=== PATIENT | female | born 1980 | race Two or more races ===

== ENCOUNTER 2020-12-03 14:51 | Outpatient (REF) | payer MEDICAID, SELFPAY | END 2020-12-03 14:52 | disposition home or self-care (01) | LOC: HO.LAB 14:51 | PROVIDERS: Visit Provider Internal Medicine | DX: Z20.822 Contact with and (suspected) exposure to COVID-19 (principal) | CPT/HCPCS: C9803; U0003; U0005 ==

== ENCOUNTER 2022-05-23 15:03 | Emergency (ER) | payer MEDICAID, SELFPAY ==
[2022-05-23 15:14] VITALS: BP 148/72; BP 150/82; PULSE 102; PULSE 98; RESP 33; TEMP 36.7; O2SAT 98; BMI 36.1
--- NOTE | 2022-05-23 15:31 | ECG_ITS ---
Test Reason : PALPITATIONS Blood Pressure : / mmHG Vent. Rate : 099 BPM Atrial Rate : 099 BPM P-R Int : 162 ms QRS Dur : 084 ms QT Int : 380 ms P-R-T Axes : 023 016 006 degrees QTc Int : 487 ms Normal sinus rhythm Prolonged QT Abnormal ECG When compared with ECG of 03-NOV-2010 14:34, No significant change was found Referred By: Ronan Fonseca Electronically Signed By:Roger Samayoa
[2022-05-23 15:55] VITALS: BP 129/65; PULSE 97; RESP 16; TEMP 36.9; O2SAT 98
--- NOTE | 2022-05-23 15:59 | MHC.EDTECH ---
this pct assumed care of pt at 1500 ,pt vitals sign taken pt waiting to see provider .
--- NOTE | 2022-05-23 16:23 | ED_ITS ---
HPI - Arrhythmia/Palpitations General Chief Complaint: Arrhythmia/Palpitations Stated Complaint: Heart palpitations since this AM per EMS Time Seen by Provider: 05/23/22 16:16 Source: patient Mode of arrival: ambulatory Limitations: no limitations History of Present Illness HPI narrative: Patient comes to the emergency room complaining of palpitations. Patient states that early this morning, she had some ?fluttering? which self-resolved. Then later on the day, patient went to the dentist office to take her son. When she was in the front desk receptionist, patient started having more intense palpitations. 911 was called and patient was brought to the emergency room. Patient states that she never experienced chest pain. No near syncopal episodes, no dizziness. No shortness of breath. Patient states that several years ago, she had something similar happened to her, she wore a Holter monitor for a day, no findings. At this time, patient is asymptomatic. Related Data Allergies Allergy/AdvReac Type Severity Reaction Status Date / Time lisinopril AdvReac Swelling Verified 05/23/22 15:29 Review of Systems Review of Systems: Constitutional : No Weight loss, No Fever, No Chills, No Night Sweats, No Fatigue, No Malaise ENT/Mouth : No Hearing loss, No Ear Pain, No Nasal Congestion, No Sinus Pain, No Hoarseness, No sore throat, No Rhinorrhea, No Swallowing Difficulty Eyes: No Eye Pain, No Swelling, No Redness, No Foreign Body, No Discharge, No Vision Changes Cardiovascular : No Chest Pain, No SOB, No Dyspnea on Exertion, No Orthopnea, No Edema, complaining of Palpitations Respiratory : No Cough, No Sputum, No Wheezing, No Smoke Exposure, No Dyspnea Gastrointestinal : No Nausea, No Vomiting, No Diarrhea, No Constipation, No abdominal Pain, No Hematochezia, No Melena Genitourinary : no irregular bleeding, No Dysuria, No Urinary Frequency, No Hematuria, No Urinary Incontinence, No Urgency, No Flank Pain, No Urinary Flow Changes, No Hesitancy Musculoskeletal : No joint pain, No Myalgias, No Joint Swelling Skin : No Skin Lesions, No rash Neuro : No Weakness, No Numbness, No Paresthesias, No Loss of Consciousness, No Dizziness, No Headache Psych : No Anxiety/Panic, No Depression, No SI/HI/AH/VH, No Social Issues, Heme/Lymph: No Bruising, No Bleeding,No Lymphadenopathy Endocrine : No Polyuria, No Polydipsia, No Temperature Intolerance [facility] Past Medical History Medical History Anxiety Hypertension Social History Social History Alcohol intake: never Smoked in Last 30 Days: No Use of substances other than those prescribed or required for medical reasons: No Advance Directives: No Advance Directives Information Provided: Yes Patient : No Physical Exam Vital Signs: Vital Signs: Last Vital Signs Temp 98.0 F 05/23/22 18:00 Pulse 99 05/23/22 18:00 Resp 16 05/23/22 18:00 BP 157/86 H 05/23/22 18:00 Pulse Ox 98 05/23/22 18:00 O2 Del Method 05/23/22 15:55 BMI result Body Mass Index 36.1 Const: Other: Appearance: Alert. Oriented X3. No acute distress. Eyes: Pupils equal, round and reactive to light. ENT: Pharynx normal. Neck: Normal inspection. Neck supple. No lymph nodes noted. No crepitus CVS: Normal heart rate and rhythm. Pulses normal. Normal S1 and S2 Respiratory: No respiratory distress. Breath sounds normal. No Wheezing. No rales Abdomen: Soft and nontender. No rigidity. No distention. Skin: Skin warm and dry. Normal skin color. Normal skin turgor. Extremities: No lower extremity edema. No Lacerations. No Rash Neuro: Oriented X 3. No motor deficit. No sensory deficit. Moving all extremities. No slurred speech. CN 2 through 12 grossly intact Psych: calm, cooperative, normal affect Course Course Course Narrative: -initial physical exam normal -EKG and labs pending Medications Administered Discontinued Medications Generic Name Dose Route Start Last Admin Trade Name Freq PRN Reason Stop Dose Admin Potassium Chloride 40 meq 05/23/22 17:17 05/23/22 17:44 Potassium Chloride Packet 20 Meq Packet PO 05/23/22 17:18 40 meq ONCE ONE Administration Medical Decision Making Medical Decision Making [facility] Narrative: -my interpretation of EKG: Normal sinus rhythm, heart rate 99, no ST segment depressions or elevation, nonspecific T-wave inversion in lead 3, QTC 487 -patient's potassium 3.0. Patient known to take chlorthalidone, potassium rep leted p.o. -patient's potassium increased to 3.6 -patient is symptomatic, patient ready to be discharged -discussed with the patient that she may need another Holter monitor evaluation. Differential Diagnosis Differential Diagnoses: The differential diagnosis associated with the presentation includes (SVT, sinus tachycardia, PVCs) Lab Data MDM Lab Attestation statement: I reviewed the patient's lab results. 05/23/22 16:35 05/23/22 16:35 Labs: Lab Results 05/23/22 05/23/22 05/23/22 Range/Units 16:35 16:35 16:35 WBC 6.4 (4.8-10.8) X10*3/uL RBC 4.60 (4.20-5.50) X10*6/uL Hgb 10.7 L (12.0-16.0) g/dl Hct 33.9 L (37.0-47.0) % MCV 73.7 L (80.0-98.0) fL MCH 23.3 L (27.0-33.0) pg MCHC 31.6 (31.0-35.0) g/dl RDW 17.0 H (11.0-16.0) % Plt Count 285 (160-400) X10*3/uL MPV 10.6 (9.4-12.3) fL Immature Gran % (Auto) 0.5 H (0.0-0.4) % Neut % (Auto) 73.4 H (45-73) % Lymph % (Auto) 16.2 L (20-40) % Cache % (Auto) 8.0 (2-11) % Eos % (Auto) 1.3 (0-4) % Baso % (Auto) 0.6 (0-2) % Lymph # (Auto) 1.0 L (1.2-4.9) X10*3/uL Cache # (Auto) 0.5 (0.1-1.2) X10*3/uL Eos # (Auto) 0.1 (0.0-0.4) X10*3/uL Baso # (Auto) 0.0 (0.0-0.2) X10*3/uL Abs Immat Gran (auto) 0.03 (0.00-0.03) X10*3/uL Absolute Neuts (auto) 4.7 (2.0-8.3) x10*3/uL Absolute Nucleated RBC 0.000 (0.0-0.012) X10*3/uL Nucleated RBC % (auto) 0.0 (0.0-0.2) /100WBC Sodium 139 (135-145) mmol/L Potassium 3.0 L (3.3-5.1) mmol/L Chloride 104 (96-108) mmol/L Carbon Dioxide 24 (22-29) mmol/L Anion Gap 14 (12-20) BUN 14 (9-16) mg/dL Creatinine 0.72 (0.5-1.4) mg/dL Estim Creat Clear Calc 96.7 Estimated GFR > 60 Random Glucose 112 (60-115) mg/dL Calcium 9.0 (8.4-10.2) mg/dL Magnesium 2.0 (1.6-2.6) mg/dL Total Bilirubin 0.4 (0.0-1.0) mg/dL Direct Bilirubin < 0.2 (0.0-0.5) mg/dL AST 16 (5-31) U/L ALT 15 (0-31) U/L Alkaline Phosphatase 136 H (39-117) U/L Troponin I High Sens < 3.5 (<3.5-17.0) ng/L Total Protein 7.2 (6.5-8.0) g/dL Albumin 4.0 (3.5-5.0) g/dL TSH 1.03 (0.32-4.0) uIU/mL 05/23/22 Range/Units 18:45 WBC (4.8-10.8) X10*3/uL RBC (4.20-5.50) X10*6/uL Hgb (12.0-16.0) g/dl Hct (37.0-47.0) % MCV (80.0-98.0) fL MCH (27.0-33.0) pg MCHC (31.0-35.0) g/dl RDW (11.0-16.0) % Plt Count (160-400) X10*3/uL MPV (9.4-12.3) fL Immature Gran % (Auto) (0.0-0.4) % Neut % (Auto) (45-73) % Lymph % (Auto) (20-40) % Cache % (Auto) (2-11) % Eos % (Auto) (0-4) % Baso % (Auto) (0-2) % Lymph # (Auto) (1.2-4.9) X10*3/uL Cache # (Auto) (0.1-1.2) X10*3/uL Eos # (Auto) (0.0-0.4) X10*3/uL Baso # (Auto) (0.0-0.2) X10*3/uL Abs Immat Gran (auto) (0.00-0.03) X10*3/uL Absolute Neuts (auto) (2.0-8.3) x10*3/uL Absolute Nucleated RBC (0.0-0.012) X10*3/uL Nucleated RBC % (auto) (0.0-0.2) /100WBC Sodium 141 (135-145) mmol/L Potassium 3.6 (3.3-5.1) mmol/L Chloride 106 (96-108) mmol/L Carbon Dioxide 25 (22-29) mmol/L Anion Gap 14 (12-20) BUN 12 (9-16) mg/dL Creatinine 0.72 (0.5-1.4) mg/dL Estim Creat Clear Calc 96.7 Estimated GFR > 60 Random Glucose 95 (60-115) mg/dL Calcium 9.0 (8.4-10.2) mg/dL Magnesium (1.6-2.6) mg/dL Total Bilirubin (0.0-1.0) mg/dL Direct Bilirubin (0.0-0.5) mg/dL AST (5-31) U/L ALT (0-31) U/L Alkaline Phosphatase (39-117) U/L Troponin I High Sens (<3.5-17.0) ng/L Total Protein (6.5-8.0) g/dL Albumin (3.5-5.0) g/dL TSH (0.32-4.0) uIU/mL Discharge Plan Discharge Clinical Impression: Palpitations Patient Disposition: Home, Self-Care Instructions: Heart Palpitations (DC) Additional Instructions: Please follow-up with your primary care physician tomorrow. Is possible that you may need to be referred for another Holter monitor evaluation. If you have any worsening or new symptoms, please return to the emergency room or call 911
--- NOTE | 2022-05-23 16:39 | MHC.EDTECH ---
pt blood drawn and sent to lab ,pt asked some some water ,provider juan said its pancho for pt to have water .
[2022-05-23 16:40] LABS: MANUAL DIFF FLAG NO
[2022-05-23 16:46] LABS: Basophils Percent Auto 0.6 % (0-2); Eosinophils Absolute Auto 0.1 X10*3/uL (0.0-0.4); Eosinophils Percent Auto 1.3 % (0-4); Hematocrit 33.9 % (37.0-47.0); Hemoglobin 10.7 g/dl (12.0-16.0); Imm Gran Abs Auto 0.03 X10*3/uL (0.00-0.03); Imm Gran Pct Auto 0.5 % (0.0-0.4); Lymphocytes Percent Auto 16.2 % (20-40); Mean Corpuscular HGB Conc 31.6 g/dl (31.0-35.0); Mean Corpuscular Hemoglobin 23.3 pg (27.0-33.0); Mean Corpuscular Volume 73.7 fL (80.0-98.0); Mean Platelet Volume 10.6 fL (9.4-12.3); Monocytes Absolute Auto 0.5 X10*3/uL (0.1-1.2); Neutrophils Absolute Auto 4.7 x10*3/uL (2.0-8.3); Neutrophils Percent Auto 73.4 % (45-73); Platelet Count 285 X10*3/uL (160-400); White Blood Count 6.4 X10*3/uL (4.8-10.8)
--- NOTE | 2022-05-23 16:59 | PC.NURSE ---
PT REPORTED THAT SHE WAS AT THE DENTIST OFFICE WITH HER DAUGHTER AND STARTED HAVING PALPITATIONS. SHE REPORTED THAT SHE HAD THE SAME THING HAPPENED TO HER IN THE PAST. HX OF ANXIETY AND TAKES ATIVAN.
[2022-05-23 17:09] LABS: Alanine Aminotransferase 15 U/L (0-31); Alkaline Phosphatase 136 U/L (39-117); Anion Gap 14 (12-20); Aspartate Amino Transferase 16 U/L (5-31); Bilirubin Direct < 0.2 mg/dL (0.0-0.5); Bilirubin Total 0.4 mg/dL (0.0-1.0); Blood Urea Nitrogen 14 mg/dL (9-16); Carbon Dioxide 24 mmol/L (22-29); Chloride 104 mmol/L (96-108); Creatinine Clr Calc Pharmacy 96.7; Estimated Glomerular Filt Rate > 60; Glucose Random 112 mg/dL (60-115); Sodium 139 mmol/L (135-145); Total Protein 7.2 g/dL (6.5-8.0)
[2022-05-23 17:13] LABS: Troponin-I High Sensitivity < 3.5 ng/L (<3.5-17.0)
[2022-05-23 17:24] LABS: TSH reflex Free T4 1.03 uIU/mL (0.32-4.0)
[2022-05-23] MEDS: Potassium Chloride Packet 20 MEQ PACKET 40 MEQ PO (17:44)
[2022-05-23 18:00] VITALS: BP 157/86; PULSE 99; RESP 16; TEMP 36.7; O2SAT 98
--- NOTE | 2022-05-23 19:00 | PC.NURSE ---
assumed care of pt aox4 resting quietly, while on phone no apparent distress bmp results pending will ctm
[2022-05-23 19:05] LABS: Anion Gap 14 (12-20); Blood Urea Nitrogen 12 mg/dL (9-16); Carbon Dioxide 25 mmol/L (22-29); Chloride 106 mmol/L (96-108); Creatinine Clr Calc Pharmacy 96.7; Estimated Glomerular Filt Rate > 60; Glucose Random 95 mg/dL (60-115); Potassium 3.6 mmol/L (3.3-5.1); Sodium 141 mmol/L (135-145)
--- NOTE | 2022-05-23 19:06 | PC.NURSE ---
bmp results indicating K+ now WNL- 3.6 pt denies pain, states she feels slightly anxious but that is her baseline denies any chest discomfort
--- NOTE | 2022-05-23 19:50 | PC.NURSE ---
Discharge instructions given/explained to patient No apparent distress ambulates safely/independently aox4 IV cath intact upon removal
== END 2022-05-23 19:50 | disposition home or self-care (01) ==
PROVIDERS: Emergency Provider Emergency Medicine
DX: I49.9 Cardiac arrhythmia, unspecified (principal); R00.2 Palpitations; Z79.899 Other long term (current) drug therapy
CPT/HCPCS: 36415; 80048; 80076; 83735; 84443; 84484; 85025; 93005; 99283; 99284

== ENCOUNTER 2022-10-28 12:00 | Outpatient (RCR) | payer MEDICAID, SELFPAY | END 2022-11-13 15:34 | disposition home or self-care (01) | LOC: HO.PT 12:00 | PROVIDERS: PCP Nurse Practitioner Community Health; Visit Provider Nurse Practitioner Community Health | DX: M79.674 Pain in right toe(s) (principal); M54.41 Lumbago with sciatica, right side | CPT/HCPCS: 97110; 97161 ==

== ENCOUNTER 2024-02-29 14:09 | Emergency (ER) | payer MEDICAID, SELFPAY ==
--- NOTE | 2024-02-29 14:12 | ECG_ITS ---
Test Reason : NEAR SYNCOPE Blood Pressure : / mmHG Vent. Rate : 098 BPM Atrial Rate : 098 BPM P-R Int : 150 ms QRS Dur : 082 ms QT Int : 366 ms P-R-T Axes : 024 006 013 degrees QTc Int : 467 ms Normal sinus rhythm Minimal voltage criteria for LVH, may be normal variant ( R in aVL ) Borderline ECG When compared with ECG of 23-MAY-2022 15:30, No significant change was found Referred By: Generic ED Physician Electronically Signed By:Roger Samayoa
[2024-02-29 14:15] VITALS: BP 220/120; PULSE 104; O2SAT 99
[2024-02-29 14:35] VITALS: BP 174/70; PULSE 107; RESP 16; TEMP 36.6; O2SAT 100; BMI 32.7
--- NOTE | 2024-02-29 14:41 | ED.GENADULT ---
HPI - General Adult General Chief complaint: Dyspnea Stated complaint: WEAKNESS,HIGH BP 220/120 PER EMS Time Seen by Provider: 02/29/24 20:16 History of Present Illness ED Provider: Martin MORENO narrative: The patient is a 44-year-old woman who says that she started to feel unwell after having had some food and a caffeinated beverage from [employer]. She says that she rather abruptly felt very lightheaded as if she might pass out and she asked someone to call 911. She says that she also felt a sense of tingling in her hands. An ambulance arrived and brought her to the hospital. Not long after arriving at the hospital her symptoms resolved. She has had a long wait to be seen and has had no recurrence of her symptoms. No pain or swelling in her legs. She is a nonsmoker. She is not on any hormonal medications. She is on amlodipine. No history of blood clots. Related Data Previous Rx's ?Medication ?Instructions ?Recorded potassium chloride 10 mEq 20 meq (2 x 10 mEq) PO DAILY 2 02/29/24 capsule,extended release weeks #28 caps Allergies Allergy/AdvReac Type Severity Reaction Status Date / Time lisinopril AdvReac Swelling Verified 02/29/24 14:36 Review of Systems Review of Systems: Yes all other systems are reviewed and are negative [facility] Past Medical History Medical History Anxiety Hypertension Social History Social History Alcohol intake: never Advance Directives: No Advance Directives Information Provided: No Do you have a plan to hurt others: No Plan Physical Exam ED Vital Signs: Vital Signs - 24 hr 02/29/24 14:35 02/29/24 19:54 02/29/24 20:49 Temperature 97.8 F 99.0 F 99.0 F Pulse Rate 107 H 106 H 106 H Respiratory Rate 16 16 16 Blood Pressure 174/70 H 164/79 H 164/79 H Pulse Oximetry 100 97 97 Oxygen Delivery Method Room Air Room Air Room Air BMI result Body Mass Index 32.7 Const Other: At the time that I interviewed the patient she was asymptomatic. She was awake, alert, pleasant, cooperative. She did not appear ill or in any distress. She looked entirely well and asymptomatic. [facility] Head: Yes normal to inspection Face and sinus: Yes normal facial exam Mouth: Normal oral and palatal mucosa present and moist mucous membranes Eyes General: appearance normal, both eyes and all related structures Neck Neck: Yes full ROM, Yes no lymphadenopathy and Yes no JVD Resp Effort & Inspection: normal respiratory effort Auscultation: clear to auscultation bilaterally Cardio Rate: regular rate Rhythm: regular rhythm Heart sounds: S1 normal heart sound present and S2 normal heart sound present Skin Other: skin is dry and unremarkable Neuro Other: the patient is awake and alert with normal mental status. Cranial nerves grossly intact. She moves her extremities normally. She has a normal gait. Extrem Other: No calf swelling or tenderness, no asymmetry, no edema. Course Course Course Narrative: RME: 44-year-old female presents to ED for resolved episode of tingling in the hands, feeling anxious, dizzy, slight chest discomfort while at [employer]hands. Patient states symptoms occurred after drinking some coffee from [employer]. Patient is very sensitive and downs and drink caffeine but she would coughing. Patient is presently asymptomatic has no complaints EKG labs ordered Medications Administered Discontinued Medications Generic Name Dose Route Start Last Admin Trade Name Bullq PRN Reason Stop Dose Admin Potassium Chloride 40 meq 02/29/24 20:27 02/29/24 20:37 Potassium Chloride Er 20 Meq Tab.Er.Prt PO 02/29/24 20:28 40 meq ONCE ONE Administration Medical Decision Making Medical Decision Making [facility] Narrative: The patient presents having arrived by ambulance after having an episode of fairly abrupt onset lightheadedness and a sense of her heart racing. she felt near syncopal but did not pass out. She also describes having a sense of numbness in her hands. Her symptoms resolved not long after arrival to the hospital and she was in the waiting room for a long time completely asymptomatic. EKG showed normal sinus rhythm and no change from previous. Basic labs are unremarkable. The patient does not have any risk factors for venous thromboembolism. Given the rapid resolution of her symptoms my suspicion for a pulmonary embolism in this case would be low. I think she may be discharged with instructions to return if worse. Her potassium was mildly low and she was prescribed some supplemental potassium. She should follow up with her PCP. Return if worse. Lab Data 02/29/24 16:48 02/29/24 16:48 Labs: Lab Results 02/29/24 Range/Units 16:48 WBC 6.9 (4.8-10.8) X10*3/uL RBC 4.71 (4.20-5.50) X10*6/uL Hgb 12.3 (12.0-16.0) g/dl Hct 36.8 L (37.0-47.0) % MCV 78.1 L (80.0-98.0) fL MCH 26.1 L (27.0-33.0) pg MCHC 33.4 (31.0-35.0) g/dl RDW 13.9 (11.0-16.0) % Plt Count 335 (160-400) X10*3/uL MPV 9.8 (9.4-12.3) fL Immature Gran % (Auto) 0.3 (0.0-0.4) % Neut % (Auto) 73.5 H (45-73) % Lymph % (Auto) 18.0 L (20-40) % Parker % (Auto) 6.8 (2-11) % Eos % (Auto) 1.0 (0-4) % Baso % (Auto) 0.4 (0-2) % Lymph # (Auto) 1.2 (1.2-4.9) X10*3/uL Parker # (Auto) 0.5 (0.1-1.2) X10*3/uL Eos # (Auto) 0.1 (0.0-0.4) X10*3/uL Baso # (Auto) 0.0 (0.0-0.2) X10*3/uL Abs Immat Gran (auto) 0.02 (0.00-0.03) X10*3/uL Absolute Neuts (auto) 5.1 (2.0-8.3) x10*3/uL Absolute Nucleated RBC 0.000 (0.0-0.012) X10*3/uL Nucleated RBC % (auto) 0.0 (0.0-0.2) /100WBC PT 11.6 (10.9-12.4) SEC INR 1.0 (0.9-1.1) APTT 22.8 L (26.0-36.8) SEC Sodium 142 (135-145) mmol/L Potassium 3.1 L (3.3-5.1) mmol/L Chloride 107 (96-108) mmol/L Carbon Dioxide 26 (22-29) mmol/L Anion Gap 12 (12-20) BUN 9 (9-16) mg/dL Creatinine 0.79 (0.5-1.4) mg/dL Estim Creat Clear Calc 95.5 Estimated GFR > 60 Random Glucose 111 (60-115) mg/dL Calcium 8.9 (8.4-10.2) mg/dL Total Bilirubin 0.3 (0.0-1.0) mg/dL AST 24 (5-31) U/L ALT 22 (0-31) U/L Alkaline Phosphatase 118 H (39-117) U/L Troponin I High Sens < 2.7 (<3.5-17.0) ng/L Total Protein 8.1 H (6.5-8.0) g/dL Albumin 4.1 (3.5-5.0) g/dL Discharge Plan Discharge Clinical Impression: Light-headedness, Tachycardia, Hypokalemia Patient Disposition: Home, Self-Care Additional Instructions: It is not clear to me exactly why you had the episode you had earlier today. However since you are feeling so much better I think going home is reasonable. You have a mildly low potassium level. I have sent a prescription for some potassium that you can take 2 times a day. Follow up appointment with your regular doctor. If at any point you feel significantly worse, especially if you feel short of breath, return to the emergency room for additional evaluation. Prescriptions: New potassium chloride 10 mEq capsule, extended release 20 meq PO DAILY 14 Days Qty: 28 0RF Referrals: [facility] [Provider Group] (episode of lightheadedness) Interventions: ED Discharge Assessment Last Done: 02/29/24 20:49 Discharge Date/Time: 02/29/24 20:50 Print Language: Croatian
[2024-02-29 16:52] LABS: MANUAL DIFF FLAG NO
[2024-02-29 16:54] LABS: Basophils Percent Auto 0.4 % (0-2); Eosinophils Absolute Auto 0.1 X10*3/uL (0.0-0.4); Hematocrit 36.8 % (37.0-47.0); Hemoglobin 12.3 g/dl (12.0-16.0); Imm Gran Abs Auto 0.02 X10*3/uL (0.00-0.03); Imm Gran Pct Auto 0.3 % (0.0-0.4); Lymphocytes Absolute Auto 1.2 X10*3/uL (1.2-4.9); Mean Corpuscular HGB Conc 33.4 g/dl (31.0-35.0); Mean Corpuscular Hemoglobin 26.1 pg (27.0-33.0); Mean Corpuscular Volume 78.1 fL (80.0-98.0); Mean Platelet Volume 9.8 fL (9.4-12.3); Monocytes Absolute Auto 0.5 X10*3/uL (0.1-1.2); Monocytes Percent Auto 6.8 % (2-11); Neutrophils Absolute Auto 5.1 x10*3/uL (2.0-8.3); Neutrophils Percent Auto 73.5 % (45-73); Platelet Count 335 X10*3/uL (160-400); Red Blood Count 4.71 X10*6/uL (4.20-5.50); Red Cell Distribution Width 13.9 % (11.0-16.0); White Blood Count 6.9 X10*3/uL (4.8-10.8)
[2024-02-29 17:06] LABS: Prothrombin Time 11.6 SEC (10.9-12.4)
[2024-02-29 17:23] LABS: Albumin Level 4.1 g/dL (3.5-5.0); Anion Gap 12 (12-20); Aspartate Amino Transferase 24 U/L (5-31); Bilirubin Total 0.3 mg/dL (0.0-1.0); Blood Urea Nitrogen 9 mg/dL (9-16); Calcium 8.9 mg/dL (8.4-10.2); Carbon Dioxide 26 mmol/L (22-29); Chloride 107 mmol/L (96-108); Creatinine Clr Calc Pharmacy 95.5; Estimated Glomerular Filt Rate > 60; Glucose Random 111 mg/dL (60-115); Potassium 3.1 mmol/L (3.3-5.1); Sodium 142 mmol/L (135-145); Total Protein 8.1 g/dL (6.5-8.0)
[2024-02-29 17:30] LABS: Troponin-I High Sensitivity < 2.7 ng/L (<3.5-17.0)
[2024-02-29 17:52] LABS: Partial Thromboplastin Time 22.8 SEC (26.0-36.8)
[2024-02-29 18:52] LABS: Alanine Aminotransferase 22 U/L (0-31); Alkaline Phosphatase 118 U/L (39-117)
[2024-02-29 19:54] VITALS: BP 164/79; PULSE 106; RESP 16; TEMP 37.2; O2SAT 97
[2024-02-29] MEDS: Potassium Chloride ER 20 MEQ TAB.ER.PRT 40 MEQ PO (20:37)
[2024-02-29 20:49] VITALS: BP 164/79; PULSE 106; RESP 16; TEMP 37.2; O2SAT 97
== END 2024-02-29 20:50 | disposition home or self-care (01) ==
PROVIDERS: Physician Assistant; Emergency Provider Emergency Medicine
DX: R42 Dizziness and giddiness (principal); R00.0 Tachycardia, unspecified; E87.6 Hypokalemia; I10 Essential (primary) hypertension
CPT/HCPCS: 36415; 80053; 84484; 85025; 85610; 85730; 93005; 99283; 99284

== ENCOUNTER → 2024-02-29 14:12 | Outpatient (BNV) | payer MEDICAID, SELFPAY | PROVIDERS: Emergency Provider Emergency Medicine; Visit Provider Internal Medicine Cardiovascular Disease | DX: R55 Syncope and collapse (principal) | CPT/HCPCS: 93010 ==